=== PATIENT | male | born 1995 | race Caucasian/White ===

== ENCOUNTER 2019-03-05 20:01 | Emergency (ER) | payer BC ==
--- NOTE | 2019-03-05 20:24 | EDM.PDOC ---
ED HPI GENERAL MEDICAL PROBLEM - General Chief Complaint: Upper Extremity Injury/Pain Stated Complaint: LEFT HAND INJURY Time Seen by Provider: 03/05/19 20:02 Source of Information: Reports: Patient History Limitations: Reports: No Limitations - History of Present Illness INITIAL COMMENTS - FREE TEXT/NARRATIVE: HISTORY AND PHYSICAL: History of present illness: Patient is a 23-year-old female who presents to the emergency room today with complaints of left hand pain after punching a wall. He is complaining of pain at the PIP of the third, fourth and fifth knuckles extending into his mid hand. He denies any numbness, tingling or weakness of the hand. Does have pain when he has to grasp. Denies any other extremity involvement. Review of systems: As per history of present illness and below otherwise all systems reviewed and negative. Past medical history: As per history of present illness and as reviewed below otherwise noncontributory. Surgical history: As per history of present illness and as reviewed below otherwise noncontributory. Social history: See social history for further information Family history: As per history of present illness and as reviewed below otherwise noncontributory. Physical exam: General: Well-developed and well-nourished 23-year-old male. Alert and oriented. Nontoxic appearing and in no acute distress. HEENT: Atraumatic, normocephalic, pupils equal and reactive bilaterally, negative for conjunctival pallor or scleral icterus, mucous membranes moist, trachea midline. No drooling or trismus noted. No meningeal signs. No hot potato voice noted. Lungs: Clear to auscultation, breath sounds equal bilaterally. Heart: S1S2, regular rate and rhythm without overt murmur Skin: Soft tissue swelling to the PIP of the fourth and fifth knuckles. Otherwise skin is intact, warm, dry. No lesions or rashes noted. Extremities: Pain with palpation of PIP joint of the 3rd, 4th, and 5th knuckle into the mid hand. Moves all extremities per self without difficulty or deficits , Strong radial pulse, cap refill less than 3 seconds. Neurovascular unremarkable. Neuro: Awake, alert, oriented. Cranial nerves II through XII unremarkable. Cerebellum unremarkable. Motor and sensory unremarkable throughout. Exam nonfocal. Notes: Displaced fracture him bone distally with a fracture fragment and fifth metacarpal bone displaced posteriorly. Minimally displaced intra-articular fracture in the base of the fourth metacarpal bone with the main portion of the fourth metacarpal bone displaced posteriorly. Dr Navarro, Hand Surgeon at , was consulted on this case. He states that the patient can be placed in an ulnar gutter splint and call his office on Wednesday for close follow-up. This information was shared with the patient and he is agreeable to plan of care. A fiberglass ulnar gutter splint was applied with sling. Contact information was given to the patient for follow- up. Supportive care measures were reviewed and discussed. Voices understanding and is agreeable to plan of care. Denies any further questions or concerns at this time. Diagnostics: Hand x-ray Therapeutics: Fiberglass splint, sling Prescription: [place] (#20) Impression: Metacarpal Facture, left Plan: 1. Rest, ice, elevate the affected extremity. Please wear the splint as directed. 2. Tylenol and/or Ibuprofen as needed for pain management. [place] for moderate to severe pain, this medication does cause some drowsiness a do not take it will driving her needing to be functioning outside of the house. 3. Follow up with the Hand Surgeon, Dr Navarro at as we discussed. Call tomorrow morning to set up your appointment. 4. Return to the ED as needed and as discussed. Definitive disposition and diagnosis as appropriate pending reevaluation and review of above. Left Hand Pain Score (Numeric/FACES): 7 - Related Data Allergies Allergy/AdvReac Type Severity Reaction Status Date / Time No Known Allergies Allergy Verified 03/05/19 20:12 Home Meds: Home Meds . [No Known Home Meds] 03/05/19 [History] Past Medical History Cardiovascular History: Reports: None Respiratory History: Reports: None Gastrointestinal History: Reports: None Genitourinary History: Reports: None Musculoskeletal History: Reports: None Neurological History: Reports: None Psychiatric History: Reports: None Endocrine/Metabolic History: Reports: None Hematologic History: Reports: None Immunologic History: Reports: None Oncologic (Cancer) History: Reports: None Dermatologic History: Reports: None - Infectious Disease History Infectious Disease History: Reports: None - Past Surgical History Head Surgeries/Procedures: Reports: None HEENT Surgical History: Reports: Oral Surgery Other HEENT Surgeries/Procedures: wisdon teeth 2015 Social & Family History - Tobacco Use Smoking Status *Q: Never Smoker - Caffeine Use Caffeine Use: Reports: Coffee - Alcohol Use Days Per Week of Alcohol Use: 1 Number of Drinks Per Day: 3 Total Drinks Per Week: 3 - Recreational Drug Use Recreational Drug Use: No Review of Systems - Review of Systems Review Of Systems: Comprehensive ROS is negative, except as noted in HPI. ED EXAM, GENERAL - Physical Exam Exam: See Below (See dictation) Course - Vital Signs Last Recorded V/S: Last Vital Signs Temp 98.3 F 03/05/19 20:10 Pulse 90 03/05/19 20:10 Resp 18 03/05/19 20:10 BP 137/100 H 03/05/19 20:10 Pulse Ox 98 03/05/19 20:10 - Orders/Labs/Meds Orders: Active Orders 24 hr Category Date Time Status DME for Discharge [COMM] Stat Oth 03/05/19 20:26 Ordered Departure - Departure Time of Disposition: 21:17 Disposition: Home, Self-Care 01 Clinical Impression: Fracture of metacarpal bone Qualifiers: Encounter type: initial encounter Metacarpal bone: fifth Fracture type: closed Metacarpal location: base Fracture alignment: displaced Laterality: left Qualified Code(s): S62.317A - Displaced fracture of base of fifth metacarpal bone, left hand, initial encounter for closed fracture Closed hamate fracture Qualifiers: Encounter type: initial encounter Hamate bone location: unspecified portion of hamate Fracture alignment: displaced Laterality: left Qualified Code(s): S62.142A - Displaced fracture of body of hamate [unciform] bone, left wrist, initial encounter for closed fracture - Discharge Information Instructions: Metacarpal Fracture, [id number] Referrals: PCP,None [Primary Care Provider] - Forms: ED Department Discharge Additional Instructions: The following information is given to patients seen in the emergency department who are being discharged to home. This information is to outline your options for follow-up care. We provide all patients seen in our emergency department with a follow-up referral. The need for follow-up, as well as the timing and circumstances, are variable depending upon the specifics of your emergency department visit. If you don't have a primary care physician on staff, we will provide you with a referral. We always advise you to contact your personal physician following an emergency department visit to inform them of the circumstance of the visit and for follow-up with them and/or the need for any referrals to a consulting specialist. The emergency department will also refer you to a specialist when appropriate. This referral assures that you have the opportunity for follow-up care with a specialist. All of these measure are taken in an effort to provide you with optimal care, which includes your follow-up. Under all circumstances we always encourage you to contact your private physician who remains a resource for coordinating your care. When calling for follow-up care, please make the office aware that this follow-up is from your recent emergency room visit. If for any reason you are refused follow-up, please contact the [facility] Emergency Department at and asked to speak to the emergency department charge nurse. [facility] [address] [place] [id number] [facility] (Dr Navarro - Hand Surgeon) [address] [place] [id number] 1. Rest, ice, elevate the affected extremity. Please wear the splint as directed. 2. Tylenol and/or Ibuprofen as needed for pain management. [place] for moderate to severe pain, this medication does cause some drowsiness a do not take it will driving her needing to be functioning outside of the house. 3. Follow up with the Hand Surgeon, Dr Navarro at as we discussed. Call tomorrow morning to set up your appointment. 4. Return to the ED as needed and as discussed. - My Orders Last 24 Hours: My Active Orders 03/05/19 20:26 DME for Discharge [COMM] Stat - Assessment/Plan Last 24 Hours: My Active Orders 03/05/19 20:26 DME for Discharge [COMM] Stat
--- NOTE | 2019-03-05 20:48 | CR ---
INDICATION: Injury. Left hand pain. FINDINGS: Three views of the left hand were obtained. There is an abnormal appearance of the hamate bone with a lucent line seen in the hamate bone. On the lateral film there is a fracture fragment of the hamate bone displaced posteriorly with the 5th carpal bone also displaced posteriorly. There is a minimally displaced intra-articular fracture in the base of the 4th metacarpal bone on the radial side with main portion of 4th metacarpal bone appearing displaced posteriorly. There is no other definite fracture seen or dislocation. IMPRESSION: Displaced fracture hamate bone distally with the fracture fragment and 5th metacarpal bone displaced posteriorly. Minimally displaced intra-articular fracture in the base of the 4th metacarpal bone with the main portion of the 4th metacarpal bone displaced posteriorly. Dictated by Hood Graves MD @ 03/05/2019 8:46:44 PM Dictated by: Hood Graves MD @ 03/05/2019 20:47:09 (Electronically Signed)
== END 2019-03-05 21:40 | disposition home or self-care (01) ==
LOC: MW.ED 20:01
DX: S62.317A Displaced fracture of base of fifth metacarpal bone, left hand, initial encounter for closed fracture (principal); S62.315A Displaced fracture of base of fourth metacarpal bone, left hand, initial encounter for closed fracture; S62.142A Displaced fracture of body of hamate [unciform] bone, left wrist, initial encounter for closed fracture; W22.01XA Walked into wall, initial encounter; Y93.89 Activity, other specified
CPT/HCPCS: 29125; 73130-26-LT; 73130-LT; 99283; 99283-25